=== PATIENT | male | born 1995 | race Caucasian/White ===

== ENCOUNTER 2018-12-08 18:12 | Emergency (ER) | payer BC ==
[~2018-12-08] VITALS: Ht 182.9 cm; Wt 117.9 kg
[~2018-12-08 18:12] MED LIST: IBUP100S PO; Loperamide2 MG PO; Zofran Odt4 MG SL
[2018-12-08] MEDS ORDERED: LIDO700A20 TOP (19:18)
[2018-12-08] MEDS ORDERED: CYCL10 PO (19:18)
[2018-12-08] MEDS ORDERED: KETO10 PO (19:18)
== END 2018-12-08 19:57 | disposition home or self-care (01) ==
LOC: ER 18:12
DX: M62.830 Muscle spasm of back (principal)
CPT/HCPCS: 96372; 99283-25; J1885; J3360

== ENCOUNTER 2024-11-30 15:56 | Emergency (ER) | payer OTHER ==
[~2024-11-30] VITALS: Ht 182.9 cm; Wt 99.8 kg
[~2024-11-30 15:56] MED LIST changes: +CYCL10 PO; +KETO10 PO; +LIDO700A20 TOP
[2024-11-30 16:08] VITALS: BP 171/91
[2024-11-30] MEDS ORDERED: Ketorolac Tromethamine 30mg Vial IM ONE (16:15)
[2024-11-30] MEDS ORDERED: CYCL10 PO (16:31)
[2024-11-30] MEDS ORDERED: Norco 5-325 Ta1 EACH PO (16:31)
== END 2024-11-30 16:38 | disposition home or self-care (01) ==
LOC: ER 15:56
DX: S39.012A Strain of muscle, fascia and tendon of lower back, initial encounter (principal); V89.2XXA Person injured in unspecified motor-vehicle accident, traffic, initial encounter
CPT/HCPCS: 72100; 96372; 99283-25; J1885